=== PATIENT | male | born 1960 | race Caucasian/White ===

== ENCOUNTER 2019-03-14 07:02 | Day surgery (SDC) | payer OTHER ==
[~2019-03-14] VITALS: Ht 190.5 cm; Wt 143.4 kg
--- NOTE | 2019-03-14 08:07 | PREAC ---
Date/Time of Note Date/Time of Note DATE: 03/14/19 TIME: 08:06 Anesthesia Eval and Record Evaluation Time Pre-Procedure Interview DATE: 03/14/19 TIME: 08:06 Age 58 Sex male NPO: 8 hrs Preoperative diagnosis Hx of rectal Bleeding and CBH Planned procedure Colonoscopy Past Medical History Past Medical History: Includes Cardio: HTN, Dyslipidemia Endo: Diabetes Pulm: Sleep Apnea, Home CPAP GI: Obesity Recreational drugs: Marijuana Surgery & Anesthesia Issues No known issue Meds Anticoagulation: No Beta Augustine within 24 hr: No Reason Beta Augustine not given: Pt. not on B-Augustine Meds reviewed: Yes Allergies Allergies Reviewed: Yes Labs/Studies Labs Reviewed: Reviewed by anesthesiologist test: N/A Studies: ECG (n/a), CXR (n/a) Pre-procedure Exam Airway: Adequate mouth opening, Adequate thyromental dist Mallampati: Mallampati II Teeth: Normal Lung: Normal Heart: Normal ASA Physical Status ASA physical status: 3 Emergency: None Planned Anesthetic General/MAC: MAC Planned Pain Management Parenteral pain med Pre-operative Attestations Prior to commencing anesthesia and surgery, the patient was re-evaluated, there was verification of: *The patient's identity *The results of appropriate recent lab work and preoperative vital signs *The above evaluation not changing prior to induction *Anesthetic plan, risk benefits, alternative and complications discussed with patient/family; questions answered; patient/family understands, accepts and wishes to proceed. NICOL WADDELL MD Mar 14, 2019 08:07
[2019-03-14 08:13] VITALS: BP 137/84; PULSE 83; RESP 12
[2019-03-14 08:20] VITALS: Ht 190.5 cm; Wt 143.4 kg
[2019-03-14] MEDS ORDERED: ATORVASTATIN (08:22)
[2019-03-14] MEDS ORDERED: METFORMIN (08:22)
[2019-03-14] MEDS ORDERED: PROPOFOL 60 ML ONE (08:59)
--- NOTE | 2019-03-14 09:00 | PAC ---
Date/Time of Note Date/Time of Note DATE: 03/14/19 TIME: 09:00 Post-Anesthesia Notes Post-Anesthesia Note Last documented vital signs T:98.1 Activity: WNL Respiratory function: WNL Cardiovascular function: WNL Mental status: Baseline Pain reasonably controlled: Yes Hydration appropriate: Yes Nausea/Vomiting absent: Yes NICOL WADDELL MD Mar 14, 2019 09:00
[2019-03-14 09:23] VITALS: BP 125/83; PULSE 78; RESP 18
== END 2019-03-14 12:07 | disposition home or self-care (01) ==
LOC: GIL 07:02
PROVIDERS: ATTEND Internal Medicine Gastroenterology
DX: Z12.11 Encounter for screening for malignant neoplasm of colon (principal); K64.8 Other hemorrhoids; K57.30 Diverticulosis of large intestine without perforation or abscess without bleeding; I10 Essential (primary) hypertension; E11.9 Type 2 diabetes mellitus without complications
CPT/HCPCS: 82962